=== PATIENT | male | born 1995 | race Caucasian/White ===

== ENCOUNTER 2023-12-09 23:00 | Emergency (ER) | payer MEDICAID ==
[~2023-12-09] VITALS: Ht 177.8 cm; Wt 97.5 kg
[2023-12-09 23:15] VITALS: BP 123/85; PULSE 76; RESP 18; TEMP 97.5; O2SAT 99
[2023-12-09 23:30] VITALS: BP 123/85; PULSE 76; RESP 18; TEMP 97.5; O2SAT 99
[2023-12-09] MEDS: KETOROLAC 60 MG/2 ML VIAL IM ONE (23:41)
[2023-12-10] MEDS ORDERED: AMOX500C25 PO (00:17)
== END 2023-12-10 00:25 | disposition home or self-care (01) ==
LOC: MED 23:00
DX: K04.7 Periapical abscess without sinus (principal); F12.90 Cannabis use, unspecified, uncomplicated; Z79.899 Other long term (current) drug therapy
CPT/HCPCS: 96372; 99283; J1885